=== PATIENT | male | born 1930 | race Asian ===

== ENCOUNTER 2017-07-10 20:25 | Inpatient (IN) | payer OTHER ==
[~2017-07-10] VITALS: Ht 167.6 cm; Wt 70.8 kg
[2017-07-10 21:26] LABS: BASOPHIL % 0.4 % (0-2); PLATELET COUNT 232 x10^3mcL (130-400)
[2017-07-10 21:33] LABS: RED CELL DISTRIBUTION WIDTH 15.4 % (11.5-14.5)
[2017-07-10 21:37] LABS: UA SPECIFIC GRAVITY >=1.030 (1.005-1.035); microscopic required? YES; urine erythrocyte 1+ (NEGATIVE)
[2017-07-10 21:43] LABS: CALCIUM 8.7 mg/dL (8.5-10.1); CARBON DIOXIDE 34.2 mmol/L (21-32); CHLORIDE SERUM 105 mmol/L (98-107); CREATININE SERUM 1.1 mg/dL (0.7-1.3); GLUCOSE SERUM 108 mg/dL (74-106); SODIUM SERUM 143 mmol/L (136-145)
[2017-07-10 21:56] LABS: ALBUMIN 3.7 g/dL (3.4-5.0); ALKALINE PHOSPHATASE 94 U/L (46-116); ALT/SGPT 7 U/L (16-63); AST/SGOT 22 U/L (15-37); BILIRUBIN TOTAL 0.34 mg/dL (0.20-1.00); CHOLESTEROL 213 mg/dL (<200); HDL CHOLESTEROL 102 mg/dL (40-60); MAGNESIUM 2.4 mg/dL (1.8-2.4); PHOSPHOROUS 3.3 mg/dL (2.5-4.9); TOTAL PROTEIN, SERUM 7.5 g/dL (6.4-8.2)
[2017-07-10] MEDS ORDERED: ARICEPT5 MG (22:25)
[2017-07-10] MEDS ORDERED: NATURE'S BLEND F1 MG (22:25)
[2017-07-10] MEDS ORDERED: RENAL CAPS1 SGL (22:26)
[2017-07-10] MEDS ORDERED: NAMENDA10 M2 PO (22:26)
[2017-07-11 01:08] VITALS: BP 155/83
[2017-07-11 03:43] LABS: AMYLASE 111 U/L (25-115); LIPASE 76 IU/L (73-393)
[2017-07-11 03:54] LABS: FREE T4 0.97 ng/dL (0.76-1.46); FREE THYROXINE INDEX 2.8 ug/dL (1.4-4.5); T4(THYROXINE) 8.4 ug/dL (4.7-13.3)
[2017-07-11 03:57] LABS: T3 TOTAL 0.88 ng/mL
[2017-07-11 05:40] VITALS: BP 131/70
[2017-07-11 06:54] LABS: CARBON DIOXIDE 31.8 mmol/L (21-32); CHLORIDE SERUM 107 mmol/L (98-107); GLUCOSE SERUM 94 mg/dL (74-106); POTASSIUM SERUM 3.8 mmol/L (3.5-5.1); SODIUM SERUM 146 mmol/L (136-145)
[2017-07-11 07:08] LABS: BASOPHIL % 0.5 % (0-2); PLATELET COUNT 201 x10^3mcL (130-400)
[2017-07-11 07:09] LABS: RED CELL DISTRIBUTION WIDTH 14.9 % (11.5-14.5)
[2017-07-11 07:10] LABS: IRON 59 ug/dL (65-170)
[2017-07-11 07:32] LABS: TOTAL IRON BINDING CAPACITY 155 ug/dL (250-450)
[2017-07-11 08:10] LABS: RED BLOOD CELLS 3.44 M/mm3 (4.52-5.90)
[2017-07-11 09:46] VITALS: BP 136/63
[2017-07-11 13:01] VITALS: BP 147/75
[2017-07-11 16:08] VITALS: BP 140/68
[2017-07-11 21:14] VITALS: BP 120/67
[2017-07-12 05:58] VITALS: BP 115/65
[2017-07-12 06:43] LABS: CALCIUM 7.8 mg/dL (8.5-10.1); CARBON DIOXIDE 30.3 mmol/L (21-32); CHLORIDE SERUM 110 mmol/L (98-107); CREATININE SERUM 0.9 mg/dL (0.7-1.3); GLUCOSE SERUM 85 mg/dL (74-106); MAGNESIUM 2.2 mg/dL (1.8-2.4); PHOSPHOROUS 2.5 mg/dL (2.5-4.9); POTASSIUM SERUM 4.3 mmol/L (3.5-5.1); SODIUM SERUM 145 mmol/L (136-145)
[2017-07-12 09:08] LABS: BASOPHIL % 0.3 % (0-2); PLATELET COUNT 199 x10^3mcL (130-400)
[2017-07-12 09:14] VITALS: BP 109/59
[2017-07-12 11:53] VITALS: BP 134/82
[2017-07-12 17:20] VITALS: BP 122/63
[2017-07-12 20:01] VITALS: BP 117/60
[2017-07-13 05:29] VITALS: BP 145/73
[2017-07-13 10:28] VITALS: BP 121/70
[2017-07-13 17:48] VITALS: BP 125/73
[2017-07-13 20:42] VITALS: BP 132/78
[2017-07-14 05:42] VITALS: BP 138/75
[2017-07-14 10:41] VITALS: BP 129/84
[2017-07-14 14:30] VITALS: BP 121/77
[2017-07-14 16:32] VITALS: BP 121/77
[2017-07-14 17:00] VITALS: BP 126/71
== END 2017-07-14 18:49 | DRG 73 ==
LOC: ED 20:25 → DU 07-11 00:26 → MU 07-13 08:38
PROVIDERS: Emergency Medicine; Student in an Organized Health Care Education/Training Program
DX: G90.8 Other disorders of autonomic nervous system (principal); N17.0 Acute kidney failure with tubular necrosis; N39.0 Urinary tract infection, site not specified; E86.0 Dehydration; G30.9 Alzheimer's disease, unspecified; F02.80 Dementia in other diseases classified elsewhere, unspecified severity, without behavioral disturbance, psychotic disturbance, mood disturbance, and anxiety; R31.9 Hematuria, unspecified; D64.9 Anemia, unspecified; Z53.29 Procedure and treatment not carried out because of patient's decision for other reasons; Z68.25 Body mass index [BMI] 25.0-25.9, adult
CPT/HCPCS: 83880; 84439; 97110-GP; 97116-GP; 97530-GP; J0696; J7030; Q0092

== ENCOUNTER 2018-07-27 10:04 | Emergency (ER) | payer OTHER ==
[~2018-07-27] VITALS: Ht 167.6 cm; Wt 55.5 kg
[~2018-07-27 10:04] MED LIST: ARICEPT5 MG; NAMENDA10 M2 PO; NATURE'S BLEND F1 MG; RENAL CAPS1 SGL
[2018-07-27 10:08] VITALS: BP 164/93; Ht 167.6 cm; Wt 55.5 kg
[2018-07-27 10:55] LABS: BASOPHIL % 0.1 % (0-2); PLATELET COUNT 238 x10^3mcL (130-400); RED CELL DISTRIBUTION WIDTH 14.5 % (11.5-14.5)
[2018-07-27 11:00] LABS: CALCIUM 8.8 mg/dL (8.5-10.1); CARBON DIOXIDE 33.6 mmol/L (21-32); CHLORIDE SERUM 105 mmol/L (98-107); CREATININE SERUM 1.3 mg/dL (0.7-1.3); GLUCOSE SERUM 108 mg/dL (74-106); POTASSIUM SERUM 4.7 mmol/L (3.5-5.1); SODIUM SERUM 144 mmol/L (136-145)
[2018-07-27 11:05] LABS: ALBUMIN 3.9 g/dL (3.4-5.0); ALKALINE PHOSPHATASE 69 U/L (46-116); ALT/SGPT 28 U/L (16-63); AST/SGOT 24 U/L (15-37); TOTAL PROTEIN, SERUM 7.6 g/dL (6.4-8.2)
[2018-07-27 11:42] LABS: microscopic required? YES; urine erythrocyte 3+ (NEGATIVE)
== END 2018-07-27 11:56 | disposition home or self-care (01) ==
LOC: ED 10:04
PROVIDERS: Emergency Medicine
DX: R31.9 Hematuria, unspecified (principal)
CPT/HCPCS: 36415